=== PATIENT | male | born 1955 | race Caucasian/White ===

== ENCOUNTER 2018-05-06 18:45 | Inpatient (IN) | payer MEDICARE, OTHER ==
[~2018-05-06 18:45] MED LIST: ADENOSINE 6 MG/2 ML ONE; CALCIUM CHLORIDE 10%, 10ML SYR ONE; CODE BLUE RESPONSE XX ONE; EPINEPHRINE SYRINGE 0.1 MG/ML, 10ML ONE; SODIUM BICARB 8.4%, 50ML SYRINGE ONE
[2018-05-06] MEDS ORDERED: SODIUM CHLORIDE FLUSH 10ML SYR IVF ONE (19:00)
[2018-05-06] MEDS ORDERED: SODIUM CHLORIDE 0.9% 1,000ML IVBOLUS ONE ×2 (19:00→20:00)
[2018-05-06 19:05] LABS: MEAN CORPUSCULAR HEMOGLOBIN 28.1 pg (27.5-34.5); MEAN CORPUSCULAR HGB CONC 31.8 g/dL (33.2-36.2); MEAN CORPUSCULAR VOLUME 88.3 fL (81-97); PLATELET COUNT 274 x10^3/uL (130-400); RED BLOOD COUNT 4.59 x10^6/uL (4.38-5.82); RED CELL DISTRIBUTION WIDTH 16.6 % (9.4-14.8)
[2018-05-06] MEDS ORDERED: SODIUM BICARBONATE 8.4% 100 MEQ in SODIUM CHLORIDE 0.45% 1,000 ML IV SCH ×2 (19:07→22:30)
[2018-05-06 19:23] LABS: ALANINE AMINOTRANSFERASE 788 U/L (12-78); ALBUMIN 1.9 g/dL (3.4-5.0); ALKALINE PHOSPHATASE 137 U/L (45-117); BILIRUBIN,TOTAL 0.5 mg/dL (0.2-1.0); CALCIUM 8.4 mg/dL (8.5-10.1); CHLORIDE 115 mmol/L (98-107); CREATININE 2.24 mg/dL (0.7-1.3); TOTAL PROTEIN 5.8 g/dL (6.4-8.2)
[2018-05-06] MEDS ORDERED: NOREPINEPHRINE 4 MG in SODIUM CHLORIDE 0.9% 246 ML IV PRN (19:30)
[2018-05-06 19:32] LABS: MD YES
[2018-05-06 19:33] LABS: LYMPHS% (MANUAL) 63 % (22-44); METAMYELOCYTES# (MANUAL) 0.22 x10^3/uL (0-0); METAMYELOCYTES% (MANUAL) 1 % (0-1); MONOS#(MANUAL) 0.66 x10^3/uL (0.3-2.7); MONOS% (MANUAL) 3 % (2-9); SEG#(MANUAL) 7.23 x10^3/uL (1.8-6.8); SEGS% (MANUAL) 33 % (42-75)
[2018-05-06 19:34] LABS: <PLATELET ESTIMATE> ADEQUATE; <PLT MORPHOLOGY> NORMAL PLT MORPH; <RBC MORPHOLOGY> NORMAL
[2018-05-06 19:37] LABS: ANION GAP 18 mmol/L (5-15)
[2018-05-06 19:39] LABS: TROPONIN I 0.209 ng/mL (0.000-0.045)
[2018-05-06 19:49] LABS: INTERNATIONAL NORMALIZED RATIO 1.4 (0.93-1.1); PROTHROMBIN TIME 14.5 Seconds (9.6-11.5)
[2018-05-06] MEDS ORDERED: SODIUM CHLORIDE FLUSH 10ML SYR IVF PRN (20:00)
[2018-05-06] MEDS ORDERED: PROPOFOL 100 ML IV PRN (20:00)
[2018-05-06] MEDS ORDERED: hydrALAzine 20 MG/ML, 1ML IVPush PRN (20:30)
[2018-05-06] MEDS ORDERED: PROMETHAZINE 25 MG/ML, 1ML IM PRN (20:30)
[2018-05-06] MEDS ORDERED: ACETAMINOPHEN 325 MG TABLET PO PRN (20:30)
[2018-05-06] MEDS ORDERED: DOCUSATE 100 MG CAPSULE PO PRN (20:30)
[2018-05-06] MEDS ORDERED: ONDANSETRON ODT 4 MG PO PRN (20:30)
[2018-05-06] MEDS ORDERED: EPINEPHRINE 2 MG in SODIUM CHLORIDE 0.9% 248 ML IV PRN (20:30)
[2018-05-06] MEDS ORDERED: LABETALOL 5MG/ML, 20ML IVPush PRN (20:30)
[2018-05-06] MEDS ORDERED: BISACODYL 10 MG SUPP PR PRN (20:30)
[2018-05-06] MEDS ORDERED: POLYETHYLENE GLYCOL 17 GM PACKET PO PRN (20:30)
[2018-05-06] MEDS ORDERED: ONDANSETRON 2MG/ML, 2ML IVPush PRN (20:30)
[2018-05-06] MEDS ORDERED: VANCOMYCIN PER PHARMACY MC PRN (20:30)
[2018-05-06] MEDS ORDERED: morphine SULFATE 10 MG/ML, 1ML IVPush PRN (20:30)
[2018-05-06] MEDS ORDERED: GABAPENTIN 300 MG CAPSULE PO PRN (20:30)
[2018-05-06] MEDS ORDERED: VANCOMYCIN PMX 1GM/200ML 200 ML IV ONE (20:30)
[2018-05-06] MEDS ORDERED: VANCOMYCIN 1,200 MG in SODIUM CHLORIDE 0.9% 250 ML IV ONE (21:00)
[2018-05-06] MEDS ORDERED: PHARMACOKINETIC MONITORING MC PRN (21:00)
[2018-05-06 21:22] LABS: FREE T4 (FREE THYROXINE) 1.25 ng/dL (0.76-1.46)
[2018-05-06] MEDS ORDERED: HEPARIN 5,000 UNITS/ML, 1ML SQ SCH (22:00)
[2018-05-06] MEDS ORDERED: ALBUTEROL/IPRATROPIUM 2.5MG/0.5MG, 3 ML ONE (22:12)
[2018-05-06 22:29] LABS: HEMOGLOBIN A1C 6.7 % (4.2-6.3)
[2018-05-06] MEDS ORDERED: PLEASE ENTER HEIGHT MC SCH (22:30)
[2018-05-06] MEDS ORDERED: EPINEPHRINE 4 MG in SODIUM CHLORIDE 0.9% 246 ML IV PRN (22:31)
[2018-05-06] MEDS: SODIUM CHLORIDE 0.9% 1,000 ML IV SCH (22:40)
[2018-05-06] MEDS: INSULIN LISPRO 100 UNITS/ML, PEN SQ-INSULIN SCH (22:48)
[2018-05-06] MEDS ORDERED: VASOPRESSIN 100 UNIT in SODIUM CHLORIDE 0.9% 495 ML IV PRN (23:00)
[2018-05-06] MEDS ORDERED: PHENYLEPHRINE 20 MG in SODIUM CHLORIDE 0.9% 248 ML IV PRN (23:00)
[2018-05-06] MEDS ORDERED: SODIUM PHOSPHATE 20 MMOL in SODIUM CHLORIDE 0.9% 250 ML IVPB PRN (23:21)
[2018-05-06] MEDS ORDERED: FENTANYL PF 250 MCG in SODIUM CHLORIDE 0.9% 250 ML IV PRN (23:21)
[2018-05-06] MEDS: CALCIUM CHLORIDE 13.6 MEQ in DEXTROSE 5% 100 ML IVPB SCH (23:30)
[2018-05-06] MEDS ORDERED: MAGNESIUM SULFATE 1 GM in SODIUM CHLORIDE 0.9% 50 ML IVPB PRN (23:30)
[2018-05-06] MEDS: KSCALE TO 4.0 IV SCH (23:30)
[2018-05-06] MEDS ORDERED: VECURONIUM 10 MG IVPush PRN (23:30)
[2018-05-06] MEDS: methylPREDNISolone SOD SUCC 125 MG/2 ML IVPush SCH (23:49)
[2018-05-06] MEDS: PIPERACILLIN/TAZO 2.25 GM in SODIUM CHLORIDE 0.9% 50 ML IV SCH (23:51)
[2018-05-07] MEDS ORDERED: PROPOFOL 100 ML IV PRN (00:16)
[2018-05-07] MEDS ORDERED: PHENYLEPHRINE 20 MG in SODIUM CHLORIDE 0.9% 248 ML IV PRN (00:16)
[2018-05-07] MEDS ORDERED: PANTOPRAZOLE 80 MG in SODIUM CHLORIDE 0.9% 100 ML IV SCH (00:16)
[2018-05-07] MEDS ORDERED: VASOPRESSIN 100 UNIT in SODIUM CHLORIDE 0.9% 495 ML IV PRN (00:16)
[2018-05-07] MEDS ORDERED: SENNOSIDES 8.8 MG/5 ML ORAL SOL NG PRN (00:30)
[2018-05-07] MEDS ORDERED: SENNA/DOCUSATE TABLET NG PRN (00:30)
[2018-05-07] MEDS: ALBUTEROL/IPRATROPIUM 2.5MG/0.5MG, 3 ML INLINE SCH ×5 (00:30→14:43)
[2018-05-07] MEDS ORDERED: BISACODYL 10 MG SUPP PR PRN (00:30)
[2018-05-07] MEDS ORDERED: LIDOCAINE-MPF 1%, 2ML ENDO PRN (00:30)
[2018-05-07] MEDS ORDERED: PANTOPRAZOLE 40 MG IV IVPush ONE (00:30)
[2018-05-07] MEDS ORDERED: PHARMACY MAY ADJ FOR RENAL FX MC SCH (00:30)
[2018-05-07] MEDS ORDERED: FENTANYL PF 100 MCG/2ML IVPush PRN (00:30)
[2018-05-07] MEDS ORDERED: LACTULOSE 20 GM/30 ML UDC NG PRN (00:30)
[2018-05-07 00:46] LABS: TRIGLYCERIDES 172 mg/dL (50-200)
[2018-05-07] MEDS ORDERED: PANTOPRAZOLE 80 MG in SODIUM CHLORIDE 0.9% 50 ML IV ONE (01:00)
[2018-05-07] MEDS ORDERED: SODIUM BICARB 8.4%, 50ML SYRINGE IVPush ONE (01:30)
[2018-05-07] MEDS: EPINEPHRINE 4 MG in SODIUM CHLORIDE 0.9% 246 ML IV PRN ×3 (01:37→18:45)
[2018-05-07] MEDS: NOREPINEPHRINE 4 MG in SODIUM CHLORIDE 0.9% 246 ML IV PRN ×2 (01:37→05:07)
[2018-05-07] MEDS ORDERED: SODIUM BICARBONATE 1 MEQ/ML, 50ML VIAL IVPush ONE (02:00)
[2018-05-07] MEDS: REGULAR INSULIN 62.5 UNITS in SODIUM CHLORIDE 0.9% 249.375 ML IV PRN ×2 (02:06→13:00)
[2018-05-07] MEDS: SODIUM CHLORIDE 0.9% 1,000 ML IV SCH (02:15)
[2018-05-07 02:28] LABS: CULTURE INDICATED? YES; MICROSCOPIC INDICATED
[2018-05-07] MEDS: INSULIN LISPRO 100 UNITS/ML, PEN SQ-INSULIN SCH (03:03)
[2018-05-07] MEDS: ARTIFICIAL TEARS OINT 3.5 GM EACHEYE SCH ×2 (03:14→10:23)
[2018-05-07 04:00] VITALS: BP 106/77
[2018-05-07 04:37] LABS: ALBUMIN 1.9 g/dL (3.4-5.0); ANION GAP 19 mmol/L (5-15); CALCIUM 8.1 mg/dL (8.5-10.1); CHLORIDE 116 mmol/L (98-107); CREATININE 2.47 mg/dL (0.7-1.3)
[2018-05-07 04:43] LABS: MEAN CORPUSCULAR HEMOGLOBIN 28.1 pg (27.5-34.5); MEAN CORPUSCULAR HGB CONC 32.9 g/dL (33.2-36.2); MEAN CORPUSCULAR VOLUME 85.4 fL (81-97); MEAN PLATELET VOLUME 8.4 fL (7.4-10.4); PLATELET COUNT 357 x10^3/uL (130-400); RED BLOOD COUNT 5.59 x10^6/uL (4.38-5.82); RED CELL DISTRIBUTION WIDTH 16.5 % (9.4-14.8)
[2018-05-07 04:47] LABS: ALANINE AMINOTRANSFERASE 1120 U/L (12-78); ALKALINE PHOSPHATASE 206 U/L (45-117); CHOL/HDL RATIO 4.9; CHOLESTEROL, TOTAL 97 mg/dL (140-239); HDL CHOL % 21 % (26-37); HDL CHOLESTEROL (DIRECT) 20 mg/dL (40-60); LDL CHOLESTEROL,CALCULATED 43 mg/dL (54-169); LDL/HDL RATIO 2.2 (0.5-3.0); TRIGLYCERIDES 170 mg/dL (50-200); VLDL CHOLESTEROL 34 mg/dL (0-25)
[2018-05-07 04:50] LABS: FIO2 85 %
[2018-05-07] MEDS: KSCALE TO 4.0 IV SCH ×4 (05:18→15:30)
[2018-05-07] MEDS: CALCIUM CHLORIDE 13.6 MEQ in DEXTROSE 5% 100 ML IVPB SCH ×2 (05:18→11:30)
[2018-05-07 05:40] LABS: MD YES
[2018-05-07 05:42] LABS: BAND#(MANUAL) 2.05 x10^3/uL; BANDS%(MANUAL) 8 % (0-7); LYMPH#(MANUAL) 2.82 x10^3/uL (1-3.4); LYMPHS% (MANUAL) 11 % (22-44); METAMYELOCYTES# (MANUAL) 0.26 x10^3/uL (0-0); METAMYELOCYTES% (MANUAL) 1 % (0-1); MONOS#(MANUAL) 0.26 x10^3/uL (0.3-2.7); MONOS% (MANUAL) 1 % (2-9); SEG#(MANUAL) 20.22 x10^3/uL (1.8-6.8); SEGS% (MANUAL) 79 % (42-75)
[2018-05-07 05:47] LABS: <PLATELET ESTIMATE> ADEQUATE; <PLT MORPHOLOGY> NORMAL PLT MORPH; ANISOCYTOSIS 1+; PMNS WITH VACUOLES 1+
[2018-05-07] MEDS: methylPREDNISolone SOD SUCC 125 MG/2 ML IVPush SCH ×2 (06:21→12:13)
[2018-05-07] MEDS: PIPERACILLIN/TAZO 2.25 GM in SODIUM CHLORIDE 0.9% 50 ML IV SCH (06:25)
[2018-05-07] MEDS ORDERED: SODIUM BICARB 8.4%,50ML SYR. 150 MEQ in DEXTROSE 5% 1,000 ML IV SCH (07:30)
[2018-05-07] MEDS: NOREPINEPHRINE 8 MG in SODIUM CHLORIDE 0.9% 242 ML IV PRN ×2 (08:04→16:53)
[2018-05-07 08:29] LABS: ALBUMIN 1.9 g/dL (3.4-5.0); ANION GAP 18 mmol/L (5-15); CALCIUM 7.6 mg/dL (8.5-10.1); CHLORIDE 118 mmol/L (98-107)
[2018-05-07 08:38] LABS: ALANINE AMINOTRANSFERASE 985 U/L (12-78); ALKALINE PHOSPHATASE 177 U/L (45-117); BILIRUBIN,TOTAL 1.8 mg/dL (0.2-1.0); CREATININE 2.49 mg/dL (0.7-1.3); TOTAL PROTEIN 5.6 g/dL (6.4-8.2)
[2018-05-07] MEDS ORDERED: LACOSAMIDE 200 MG in SODIUM CHLORIDE 0.9% 100 ML IVPB ONE (10:30)
[2018-05-07] MEDS ORDERED: POTASSIUM CHLORIDE PMX 100 ML IV ONE (10:30)
[2018-05-07] MEDS ORDERED: SODIUM BICARBONATE 8.4% 150 MEQ in SODIUM CHLORIDE 0.45% 1,000 ML IV ONE (10:30)
[2018-05-07] MEDS ORDERED: PANTOPRAZOLE 40 MG IV IVPush SCH (11:00)
[2018-05-07] MEDS ORDERED: MIDAZOLAM 1 MG/ML, 2ML IVPush PRN (11:00)
[2018-05-07] MEDS ORDERED: PIPERACILLIN/TAZO/PMX 2.25GM 50 ML IV SCH (12:00)
[2018-05-07] MEDS ORDERED: LORazepam 2 MG/ML, 1ML IVPush PRN ×2 (12:00→15:00)
[2018-05-07 12:41] LABS: AMPHETAMINE SCREEN, URINE Positive (Negative); BARBITURATE SCREEN, URINE Negative (Negative); BENZODIAZEPINE SCREEN, URINE Negative (Negative); CANNABINOID SCREEN, URINE Positive (Negative); COCAINE SCREEN, URINE Negative (Negative); METHADONE SCREEN, URINE Negative (Negative); OPIATE SCREEN, URINE Negative (Negative)
[2018-05-07] MEDS ORDERED: VANCOMYCIN PMX 1GM/200ML 200 ML IVPB ONE (14:00)
[2018-05-07] MEDS ORDERED: morphine SULFATE 10 MG/ML, 1ML IVPush PRN (15:00)
[2018-05-07] MEDS ORDERED: ATROPINE OPHTH SOLN 1%, 5ML PO PRN (15:00)
[2018-05-07] MEDS ORDERED: SODIUM ACETATE 150 MEQ in DEXTROSE 5% 1,000 ML IV SCH (18:30)
[2018-05-07] MEDS ORDERED: SODIUM BICARBONATE 8.4% 150 MEQ in SODIUM CHLORIDE 0.45% 1,000 ML IV SCH (22:30)
== END 2018-05-08 02:45 | disposition expired | DRG 871 ==
LOC: ED 19:03 → EDIP 19:44 → CCU 21:55
PROVIDERS: ADMIT Internal Medicine; ATTEND Internal Medicine
PROC: 5A12012 Performance of Cardiac Output, Single, Manual (ICD-10-PCS; principal; 2018-05-06)
PROC: 0BH17EZ Insertion of Endotracheal Airway into Trachea, Via Natural or Artificial Opening (ICD-10-PCS; 2018-05-06)
PROC: 02HV33Z Insertion of Infusion Device into Superior Vena Cava, Percutaneous Approach (ICD-10-PCS; 2018-05-06)
PROC: B548ZZA Ultrasonography of Superior Vena Cava, Guidance (ICD-10-PCS; 2018-05-06)
PROC: 4A133B1 Monitoring of Arterial Pressure, Peripheral, Percutaneous Approach (ICD-10-PCS; 2018-05-06)
PROC: 5A1945Z Respiratory Ventilation, 24-96 Consecutive Hours (ICD-10-PCS; 2018-05-06)
DX: A41.89 Other specified sepsis (principal); E43 Unspecified severe protein-calorie malnutrition; I21.4 Non-ST elevation (NSTEMI) myocardial infarction; J96.01 Acute respiratory failure with hypoxia; J96.02 Acute respiratory failure with hypercapnia; K72.00 Acute and subacute hepatic failure without coma; N17.0 Acute kidney failure with tubular necrosis; J69.0 Pneumonitis due to inhalation of food and vomit; I50.41 Acute combined systolic (congestive) and diastolic (congestive) heart failure; D68.69 Other thrombophilia; Z99.11 Dependence on respirator [ventilator] status; B19.20 Unspecified viral hepatitis C without hepatic coma; D50.9 Iron deficiency anemia, unspecified; E03.9 Hypothyroidism, unspecified; E11.9 Type 2 diabetes mellitus without complications; E78.5 Hyperlipidemia, unspecified; E87.5 Hyperkalemia; F17.210 Nicotine dependence, cigarettes, uncomplicated; I11.0 Hypertensive heart disease with heart failure; I27.29 Other secondary pulmonary hypertension; I45.10 Unspecified right bundle-branch block; I48.2 Chronic atrial fibrillation; K75.89 Other specified inflammatory liver diseases; L08.9 Local infection of the skin and subcutaneous tissue, unspecified; M1A.9XX0 Chronic gout, unspecified, without tophus (tophi); G25.3 Myoclonus; N40.0 Benign prostatic hyperplasia without lower urinary tract symptoms; R57.0 Cardiogenic shock; R57.1 Hypovolemic shock; Z51.5 Encounter for palliative care; Z66 Do not resuscitate; G47.33 Obstructive sleep apnea (adult) (pediatric); J44.9 Chronic obstructive pulmonary disease, unspecified; E55.9 Vitamin D deficiency, unspecified; E53.8 Deficiency of other specified B group vitamins; Z86.73 Personal history of transient ischemic attack (TIA), and cerebral infarction without residual deficits; Z79.02 Long term (current) use of antithrombotics/antiplatelets; Z79.899 Other long term (current) drug therapy
CPT/HCPCS: 31500; 36415; 36600; 71045; 80047; 80053; 80061; 80202; 80307; 81001; 82330; 82550; 82803; 82962; 83036; 83735; 84100; 84132; 84439; 84443; 84478; 84484; 85014; 85018; 85025; 85610; 85730; 87040; 87070; 87077; 87081; 87086; 87147; 87186; 87205; 92950; 93005; 93306; 94002; 94003; 94640; 96361; 96365; C9254; G0378; J0153; J0171; J1815; J2543; J3370; J3475; J3480; J7620; C9113; J2930; J7030; J7050